=== PATIENT | female | born 1965 | race Caucasian/White ===

== ENCOUNTER → 2018-03-14 | Outpatient (CLI) | payer BC | END | disposition home or self-care (01) | LOC: RAH 10:59 | PROVIDERS: ATTEND Family Medicine | DX: Z12.31 Encounter for screening mammogram for malignant neoplasm of breast (principal) | CPT/HCPCS: 77067 ==

== ENCOUNTER 2019-03-11 07:29 | Day surgery (SDC) | payer BC ==
[2019-03-10 12:07] VITALS: BP 127/74
[2019-03-10 12:14] LABS: CREATININE 0.6 mg/dL (0.5-1.5); POTASSIUM 4.3 mmol/L (3.5-5.1)
[~2019-03-11] VITALS: Ht 165.1 cm; Wt 97.3 kg
[2019-03-11 08:30] VITALS: BP 115/72
--- NOTE | 2019-03-11 08:30 | NUR ---
POTENTIAL FOR INFECTION: LEFT BACK SHOULDER AND UPPER BACK WIPED WITH ADOLFO: CHLORHEXIDINE GLUCONATE CLOTH PATIENTS PRE-OP SKIN PREP PER [facility].
[2019-03-11] MEDS ORDERED: SODIUM CHLORIDE 0.9% 1000ML 1,000 ML IV ONE (08:48)
[2019-03-11] MEDS ORDERED: BUPIVACAINE/PF 0.5% 30ML VIAL ONE (09:18)
[2019-03-11] MEDS ORDERED: DEXAMETHASONE SOD PHOSPHATE 10MG/ML 1ML VIAL ONE (09:36)
[2019-03-11] MEDS ORDERED: ONDANSETRON HCL 4 MG/2 ML VIAL ONE (09:36)
[2019-03-11] MEDS ORDERED: MIDAZOLAM HCL 1 MG/ML 2ML VIAL ONE (09:36)
[2019-03-11] MEDS ORDERED: LIDOCAINE PF 2% 5ML ABBOJECT ONE (09:36)
[2019-03-11] MEDS ORDERED: PROPOFOL 10 MG/ML 20ML VIAL IV ONE ×2 (09:36→11:12)
[2019-03-11] MEDS ORDERED: FENTANYL CITRATE PF 50 MCG/1 ML 2ML VIAL ONE ×2 (09:36→10:52)
[2019-03-11] MEDS ORDERED: ROCURONIUM 10MG/1ML SYR 10 MG/ML ML ONE (09:37)
[2019-03-11] MEDS ORDERED: ATOR40TA71 PO (10:10)
[2019-03-11] MEDS ORDERED: GLIM2TAB4 PO (10:10)
[2019-03-11] MEDS ORDERED: SEMAGLUTIDE SQ (10:10)
[2019-03-11] MEDS ORDERED: INSU100I24 SQ (10:10)
[2019-03-11] MEDS ORDERED: PANT40TA25 PO (10:10)
[2019-03-11] MEDS ORDERED: EPHEDRINE SULFATE 50 MG/ML AMPULE ONE (10:13)
--- NOTE | 2019-03-11 11:40 | NUR ---
CONSULT: CONSTANTIN ARMIJO PORTFOLIO MGR OF PATIENT CANCELLING SURGERY. HE WILL NOTIFY DR. BERGERON OF PATIENT CANCELLING SURGERY.
== END 2019-03-11 12:00 | disposition home or self-care (01) ==
LOC: DAH 07:29
PROVIDERS: ATTEND Surgery
DX: L72.3 Sebaceous cyst (principal); E10.9 Type 1 diabetes mellitus without complications; Z90.710 Acquired absence of both cervix and uterus; Z98.890 Other specified postprocedural states; Z80.0 Family history of malignant neoplasm of digestive organs; Z53.8 Procedure and treatment not carried out for other reasons
CPT/HCPCS: 36415; 80048; 82948; A4215; A4221; A4222; A4223; A5120; A6260; J1100; J2001; J2250; J2405; J2704 ×2; J3010 ×2; J3490; J7030

== ENCOUNTER → 2019-03-20 | Outpatient (CLI) | payer BC ==
[~2019-03-20] MED LIST: ATOR40TA71 PO; GLIM2TAB4 PO; INSU100I24 SQ; PANT40TA25 PO; SEMAGLUTIDE SQ
== END | disposition home or self-care (01) ==
LOC: RAH 09:31
PROVIDERS: ATTEND Family Medicine
DX: Z12.31 Encounter for screening mammogram for malignant neoplasm of breast (principal)
CPT/HCPCS: 77067

== ENCOUNTER → 2020-11-30 | Outpatient (CLI) | payer OTHER ==
[~2020-11-30] MED LIST changes: +GLIM2TAB30 PO; -GLIM2TAB4 PO; -PANT40TA25 PO; +PANT40TA54 PO
== END | disposition home or self-care (01) ==
LOC: RAH 10:20
PROVIDERS: ATTEND Family Medicine
DX: Z12.31 Encounter for screening mammogram for malignant neoplasm of breast (principal); Z00.01 Encounter for general adult medical examination with abnormal findings
CPT/HCPCS: 77067

== ENCOUNTER 2023-07-05 10:56 | Emergency (ER) | payer BC ==
[~2023-07-05] VITALS: Ht 165.1 cm; Wt 95.3 kg
[~2023-07-05 10:56] MED LIST changes: -CYCL-309 PO; -IBUP-2077 PO
[2023-07-05 11:10] VITALS: BP 153/86; PULSE 86; RESP 18; O2SAT 98
[2023-07-05] MEDS ORDERED: IBUP-2077 PO (11:24)
[2023-07-05] MEDS ORDERED: CYCL-309 PO (11:24)
[2023-07-05] MEDS ORDERED: CYCLOBENZAPRINE HCL 10 MG TABLET PO ONE (11:30)
[2023-07-05] MEDS ORDERED: IBUPROFEN 800 MG TAB PO ONE (11:30)
== END 2023-07-05 11:37 | disposition home or self-care (01) ==
LOC: EDH 10:56
DX: S46.811A Strain of other muscles, fascia and tendons at shoulder and upper arm level, right arm, initial encounter (principal); E11.9 Type 2 diabetes mellitus without complications; Z79.899 Other long term (current) drug therapy; Z98.890 Other specified postprocedural states; X50.0XXA Overexertion from strenuous movement or load, initial encounter; Y93.89 Activity, other specified; Y92.89 Other specified places as the place of occurrence of the external cause; Y99.8 Other external cause status

== ENCOUNTER → 2023-07-05 | Outpatient (CLI) | payer BC ==
[~2023-07-05] MED LIST changes: +CYCL-309 PO; +IBUP-2077 PO
== END | disposition home or self-care (01) ==
LOC: RAH 10:32
PROVIDERS: ATTEND Family Medicine
DX: Z12.31 Encounter for screening mammogram for malignant neoplasm of breast (principal)
CPT/HCPCS: 77067

== ENCOUNTER → 2024-07-06 | Outpatient (CLI) | payer BC ==
[~2024-07-06] MED LIST changes: +CYCL-309 PO; +IBUP-2077 PO
--- NOTE | 2024-07-06 11:55 | HMCIMG ---
SCREENING MAMMOGRAM REASON: Annual Exam COMPARISON: 07/05/2023 TECHNIQUE: CC and MLO views of the bilateral breasts were performed.CAD was performed as well. FINDINGS: Parenchymal density: There are scattered areas of fibroglandular density. There are no focal mass lesions. There are no pathologic appearing calcifications. There is no evidence of architectural distortion or skin thickening. IMPRESSION: Normal screening mammogram The patient was entered into a reminder system with a target due date for their next mammogram. BI-RADS CATEGORY 1: NEGATIVE Recommend monthly self breast exam as well as annual clinical examination. A negative x-ray should not delay biopsy if a dominant or clinically suspicious mass is present, since 8-10% of cancers are not identified by mammography. Dense breasts particularly, may obscure an underlying neoplasm. Some of these may be detected clinically and therefore, clinical examination is an essential part of breast evaluation.
== END | disposition home or self-care (01) ==
LOC: RAH 08:24
PROVIDERS: ATTEND Family Medicine
DX: Z12.31 Encounter for screening mammogram for malignant neoplasm of breast (principal); R92.323 Mammographic fibroglandular density, bilateral breasts
CPT/HCPCS: 77067